=== PATIENT | male | born 1950 | race Asian ===

== ENCOUNTER 2023-05-22 10:23 | Outpatient (AMB) | payer MEDICARE, SELFPAY ==
--- NOTE | 2023-05-22 10:25 | MHC.OFFVIS ---
Intake Vital Signs 05/22/23 10:26 Height 5 ft 3 in Weight 160 lb BMI 28.3 BP 118/72 Blood Pressure Location Lt brachial Position Sitting Respiration 12 Pulse 94 Pulse Source Pulse Oximeter Pulse Oximetry (%) 99 Oxygen Delivery Method Room Air Intake Visit Reasons: back pain/ CONFIRM Allergies No Known Allergies Allergy (Verified 05/22/23 10:29) Medication List - Last Reconciled 05/22/23 by Mary Munguia LPN doxazosin 2 mg PO DAILY finasteride 5 mg PO DAILY metoprolol succinate ER 25 mg PO DAILY naproxen 500 mg PO BID pregabalin 75 mg PO BID rosuvastatin 10 mg PO BEDTIME HPI back pain/ CONFIRM HPI Details 72-year-old male who presents today to the office for an evaluation of back pain. The patient reports low back pain that has been going on for several years. It is rated as 7/10 in intensity. It is mostly in the right low back area. He has moderate thoracic and lumbar scoliosis. He underwent cortisone injections in the past that only provided short term relief. He is looking for some longer-term treatment options. The patient had received fluoroscopic facet injections by pain management at [facility] every three months, and his last injection was on 03/15/2023. He is able to stand, sit, and walk. He is unable to lay down. He reports taking naproxen and methocarbamol with minimal pain relief. [facility] Medical History (Updated 05/28/23 @ 11:38 by El Richmond MD) Paroxysmal supraventricular tachycardia Mitral valve problem Hypertriglyceridemia Elevated prostate specific antigen (PSA) Benign prostatic hyperplasia Briones's cyst Review of Systems Const All systems reviewed & are unremarkable except as noted in HPI and below Physical Exam Vital Signs: Last Vital Signs Pulse 94 05/22/23 10:26 Resp 12 05/22/23 10:26 BP 118/72 05/22/23 10:26 Pulse Ox 99 05/22/23 10:26 Oxygen Delivery Method Room Air 05/22/23 10:26 BMI result Body Mass Index 28.3 General: Appears afebrile. Alert and oriented. Mood and affect appropriate. Follows and participates in conversation appropriately. Respiratory effort is unlabored. Able to transition from sit to stand unassisted. Ambulates with bilaterally normal heel strike and toe off. Pain is localized to the right flank/subcostal area. No significant pain in the lower back area. It is tender to palpation. Results Reviewed Results Reviewed: No imaging is available for review. Assessment & Plan Assessment & Plan (1) Chest wall pain, chronic: Code(s): R07.89 - Other chest pain; G89.29 - Other chronic pain Plan We will schedule him an ultrasound examination of the subcostal region of tenderness with possible right T9 intercostal nerve blocks. All questions were answered. The patient is on board with the plan. Scribed for Dr. Richmond by Tommy Steele, curator medical museum, on 05/22/2023. I, Dr. Richmond, have personally reviewed and agree with the information entered by the scribe. Coding Level of Care Code New Pt Level 4 (70241) Diagnoses Chest wall pain, chronic R07.89; G89.29
[2023-05-22 10:26] VITALS: BP 118/72; PULSE 94; RESP 12; O2SAT 99; BMI 28.3
== END 2023-05-22 11:10 | disposition home or self-care (01) ==
LOC: HO.PMC 10:24
PROVIDERS: PCP Internal Medicine; Visit Provider Internal Medicine
DX: R07.89 Other chest pain (principal); G89.29 Other chronic pain
CPT/HCPCS: 99204

== ENCOUNTER → 2023-05-22 10:23 | Outpatient (BNVA) | payer MEDICARE, SELFPAY | PROVIDERS: PCP Internal Medicine; Visit Provider Internal Medicine | DX: R07.89 Other chest pain (principal); G89.29 Other chronic pain | CPT/HCPCS: 99202 ==

== ENCOUNTER 2023-06-03 08:08 | Outpatient (AMB) | payer MEDICARE, SELFPAY ==
--- NOTE | 2023-06-03 08:11 | MHC.OFFVIS ---
Intake Vital Signs 06/03/23 08:12 Height 5 ft 3 in Weight 158 lb BMI 28.0 BP 123/84 Blood Pressure Location Lt brachial Position Sitting Respiration 12 Pulse 96 Pulse Source Pulse Oximeter Pulse Oximetry (%) 96 Oxygen Delivery Method Room Air Intake Visit Reasons: US guided inj Allergies No Known Allergies Allergy (Verified 06/03/23 08:14) Medication List - Last Reconciled 06/03/23 by Mary Munguia LPN doxazosin 2 mg PO DAILY finasteride 5 mg PO DAILY metoprolol succinate ER 25 mg PO DAILY naproxen 500 mg PO BID pregabalin 75 mg PO BID rosuvastatin 10 mg PO BEDTIME HPI US guided inj HPI Details 72-year-old male who presents today to the office for an US guided injection. He reports severe pain and is unable to lay down. Denies any recent cough, cold, infection, fever or other significant changes in medical history since last office visit. He has no history of DM. [facility] Medical History (Updated 06/03/23 @ 09:08 by El Richmond MD) Chest wall pain, chronic Paroxysmal supraventricular tachycardia Mitral valve problem Hypertriglyceridemia Elevated prostate specific antigen (PSA) Benign prostatic hyperplasia Briones's cyst Review of Systems Const All systems reviewed & are unremarkable except as noted in HPI and below Physical Exam Vital Signs: Last Vital Signs Pulse 96 06/03/23 08:12 Resp 12 06/03/23 08:12 BP 123/84 06/03/23 08:12 Pulse Ox 96 06/03/23 08:12 Oxygen Delivery Method Room Air 06/03/23 08:12 BMI result Body Mass Index 28.0 General: Appears afebrile. Alert and oriented. Mood and affect appropriate. Follows and participates in conversation appropriately. Respiratory effort is unlabored. Able to transition from sit to stand unassisted. Ambulates with bilaterally normal heel strike and toe off. Office Procedures Joint Injection/Drain Joint Injection/Drain Details: Right gluteus medius tendon injection at the posterior superior iliac spine insertion The patient was placed in the lateral position. Ultrasound was used to visualize the structures underneath the point of maximal tenderness that showed the gluteus medius muscle as well as the PSIS. The needle was advanced under ultrasound guidance. 30 ml of Kenalog with 5cc of ropivacaine and 8 cc of normal saline was injected around the tendon insertion site with fascial hydrodissection. The needle was removed, skin cleansed and a sterile bandage was applied. The patient tolerated the procedure well and no complications were encountered. Following the procedure, the patient's vital signs and respiration were stable. The patient was discharged home in good condition with post-procedural instructions. Time Out: Immediately prior to the procedure, the following was verbally confirmed that there is a signed consent form and that the correct patient, planned procedure, site and side are consistent with documentation and that necessary equipment and/or blood products are available prior to the start of the case. Complications: none EBL: <1 cc Coding Procedure code (CPT) selection complete Results Reviewed Results Reviewed: No imaging is available for review. Assessment & Plan Assessment & Plan (1) Right buttock pain: Code(s): M79.18 - Myalgia, other site Plan Patient is status post right gluteus medius tendon injection at the posterior superior iliac spine. Patient tolerated procedure well and was discharged home in stable condition with discharge instructions. All questions were answered. Follow-up as needed depending on response to therapy. Scribed for Dr. Richmond by Tommy Steele, medical technical writer, on 06/03/2023. I, Dr. Richmond, have personally reviewed and agree with the information entered by the scribe. Coding Level of Care Code Procedure Only Diagnoses Right buttock pain M79.18
[2023-06-03 08:12] VITALS: BP 123/84; PULSE 96; RESP 12; O2SAT 96; BMI 28.0
== END 2023-06-03 08:40 | disposition home or self-care (01) ==
PROVIDERS: PCP Internal Medicine; Visit Provider Internal Medicine
DX: M79.18 Myalgia, other site (principal)
CPT/HCPCS: 20550

== ENCOUNTER → 2023-06-03 08:08 | Outpatient (BNVA) | payer MEDICARE, SELFPAY | PROVIDERS: PCP Internal Medicine; Visit Provider Internal Medicine | DX: M79.18 Myalgia, other site (principal) | CPT/HCPCS: 20550; J2795; J3301 ==

== ENCOUNTER 2023-06-14 11:23 | Outpatient (AMB) | payer MEDICARE, SELFPAY ==
--- NOTE | 2023-06-14 11:30 | A.OFFVIS_ITS ---
Vital Signs 06/14/23 11:33 Height 5 ft 3 in Weight 158 lb BMI 28.0 BP 102/58 L Blood Pressure Location Lt brachial Position Sitting Respiration 12 Pulse 107 H Pulse Source Pulse Oximeter Pulse Oximetry (%) 96 Oxygen Delivery Method Room Air Intake Visit Reasons: NO RELIEF AFTER INJECTION Allergies No Known Allergies Allergy (Verified 06/14/23 11:34) Medication List - Last Reconciled 06/14/23 by Mary Munguia LPN doxazosin 2 mg PO DAILY finasteride 5 mg PO DAILY metoprolol succinate ER 25 mg PO DAILY naproxen 500 mg PO BID pregabalin 75 mg PO BID rosuvastatin 10 mg PO BEDTIME HPI HPI NO RELIEF AFTER INJECTION: Details: 72-year-old male who presents today to the office for a no relief after injection. The patient reports 60% relief following the procedure for first two days. His pain then started to return to baseline. He is interested in repeating injection. Past procedure: 06/03/23: Right gluteus medius tendon injection at the posterior superior iliac spine insertion: 60% short term relief relief. [facility] Medical History (Updated 06/03/23 @ 09:08 by El Richmond MD) Chest wall pain, chronic Paroxysmal supraventricular tachycardia Mitral valve problem Hypertriglyceridemia Elevated prostate specific antigen (PSA) Benign prostatic hyperplasia Briones's cyst Review of Systems Const All systems reviewed & are unremarkable except as noted in HPI and below Physical Exam Vital Signs: Last Vital Signs Pulse 107 H 06/14/23 11:33 Resp 12 06/14/23 11:33 BP 102/58 L 06/14/23 11:33 Pulse Ox 96 06/14/23 11:33 Oxygen Delivery Method Room Air 06/14/23 11:33 BMI result Body Mass Index 28.0 General: Appears afebrile. Alert and oriented. Mood and affect appropriate. Follows and participates in conversation appropriately. Respiratory effort is unlabored. Able to transition from sit to stand unassisted. Ambulates with bilaterally normal heel strike and toe off. Office Procedures Injection Trigger Point Multi Right lumbar trigger point injection, ultrasound guided Pre-procedure diagnosis: Myofascial pain Post-procedure diagnosis: Myofascial pain Site and number of trigger points: Right gluteus medius, minimus, tensor fascia julia Solution: Total volume administered 5 ml ropivacaine 0.25%). The procedure, its benefits, and its risks were explained to the patient and all questions were answered. The painful triggering area was identified and really ultrasound of the needle was advanced under ultrasound guidance to the muscle and in between the fascial layers in between the muscles. The injectate was administered in small increments. The needle was then removed. The patient tolerated the procedure well. Post-procedure, breath sounds were equal at both sides of the chest. The patient tolerated the procedure well, without complication. The patient denied any numbness, paresthesias, or weakness. Post-procedure vitals were recorded as part of the nursing discharge note in electronic medical record. Following a period of observation, the patient was discharged in stable condition with written discharge instructions. An ultrasound image of the injection was taken and stored in the permanent record. Trigger Point Multiple: 69208- Trigger point injection =/>3 Joint Injection/Drain Joint Injection/Drain Details: Bilateral greater trochanteric bursa injection, ultrasound guided. After informed written consent was obtained, the patient was placed in the lateral position. Pre-procedure oxygen saturation, heart rate, and blood pressure were recorded. The skin was prepped with Chloroprep, and draped in a sterile fashion. With the use of ultrasound, the greater trochanter was identified. A 21-gauge 80 mm needle was then advanced toward the trochanteric bursa under ultrasound visualization. Once in position, and after negative aspiration, 40 mg of Kenalog mixed with 0.5% ropivacaine (3mL total). There was no evidence of paresthesia throughout needle placement. The needle was withdrawn. The patient tolerated the procedure well and there was no evidence of procedural complications. The patient was observed in the procedure room for 20 minutes, vitals were stable, and discharged in stable condition. An ultrasound image of the injection was taken and stored in the permanent record. Coding 97682 - Glenohumeral/Tronchanteric Bursa/Intraarticular (Bilateral, Ultrasound guided) Procedure code (CPT) selection complete Results Reviewed Results Reviewed: No imaging is available for review. Assessment & Plan Assessment & Plan (1) Right buttock pain: Code(s): M79.18 - Myalgia, other site Category: Medical Plan Patient is status post right gluteus medius trigger point injection and bilateral GTB injections, ultrasound guided. Patient tolerated procedure well and was discharged home in stable condition with discharge instructions. All questions were answered. We will follow-up in two weeks via telephone or in clinic to assess response to therapy. A follow-up appointment was made during today's visit. Scribed for Dr. Richmond by Tommy Steele, emergency medicine medical director, on 06/14/2023. I, Dr. Richmond, have personally reviewed and agree with the information entered by the scribe.
[2023-06-14 11:33] VITALS: BP 102/58; PULSE 107; RESP 12; O2SAT 96; BMI 28.0
== END 2023-06-14 12:07 | disposition home or self-care (01) ==
PROVIDERS: PCP Internal Medicine; Visit Provider Internal Medicine
DX: M79.18 Myalgia, other site (principal)
CPT/HCPCS: 20553; 20611

== ENCOUNTER → 2023-06-14 11:23 | Outpatient (BNVA) | payer MEDICARE, SELFPAY | PROVIDERS: PCP Internal Medicine; Visit Provider Internal Medicine | DX: M79.18 Myalgia, other site (principal) | CPT/HCPCS: 20553; 20611 ==

== ENCOUNTER 2023-07-26 08:10 | Outpatient (REF) | payer MEDICARE, SELFPAY ==
--- NOTE | ~2023-07-26 | XR_ITS ---
EXAMINATION: XR KNEE AP STANDING CLINICAL INFORMATION: Primary bilateral osteoarthritis of knee. COMPARISON: None available. TECHNIQUE: AP bilateral standing view of the knees was obtained. FINDINGS: The bones are diffusely demineralized. Mild narrowing of the bilateral medial compartments. Tiny rounded density overlying the lateral aspect of the right medial compartment, possibly representing a loose body versus extraosseous focus. Sclerotic focus overlying the proximal lateral aspect of the right tibia may represent an osseous lesion such as a bone island versus an extra osseous focus. XR/XR knee standing BI IMPRESSION: 1. Mild narrowing of the bilateral medial compartments. 2. Tiny rounded density overlying the lateral aspect of the right medial compartment, possibly representing a loose body versus extraosseous focus. 3. Sclerotic focus overlying the proximal lateral aspect of the right tibia may represent an osseous lesion such as a bone island versus an extra osseous focus. 4. Dedicated complete series of images of the bilateral knees recommended for further evaluation.
== END 2023-07-26 08:11 | disposition home or self-care (01) ==
LOC: HO.XRAY 08:10
PROVIDERS: PCP Internal Medicine; Visit Provider Internal Medicine
DX: M17.0 Bilateral primary osteoarthritis of knee (principal); M79.18 Myalgia, other site
CPT/HCPCS: 20553; 73565; 99212; J2795; J3301

== ENCOUNTER 2023-07-26 08:10 | Outpatient (AMB) | payer MEDICARE, SELFPAY ==
--- NOTE | 2023-07-26 08:12 | MHC.OFFVIS ---
Vital Signs 07/26/23 08:16 Height 5 ft 3 in Weight 157 lb BMI 27.8 BP 131/80 Blood Pressure Location Lt brachial Position Sitting Respiration 14 Pulse 104 H Pulse Source Pulse Oximeter Pulse Oximetry (%) 96 Oxygen Delivery Method Room Air Intake Visit Reasons: INJECTION DISCUSSION Allergies No Known Allergies Allergy (Verified 07/26/23 08:19) Medication List - Last Reconciled 07/26/23 by Mary Munguia LPN doxazosin 2 mg PO DAILY finasteride 5 mg PO DAILY metoprolol succinate ER 25 mg PO DAILY naproxen 500 mg PO BID pregabalin 75 mg PO BID rosuvastatin 10 mg PO BEDTIME HPI HPI INJECTION DISCUSSION: Details: 73-year-old male who presents today to the office for a follow up discussion. He reports 6 weeks of relief following the last round of TPIs. He started to experience his torso pain during the last week and is interested in repeating TPIs. He also complains of significant medial left knee pain. He has not received knee injections in the past. He has not had an x-ray for his knee. He has a history of osteoarthritis. He is interested in injections for arthritis. Past procedure: 06/14/23: Right lumbar trigger point injection, ultrasound guided: >80% relief for 6 weeks. 06/14/23: Bilateral greater trochanteric bursa injection, ultrasound guided: >60% relief. 06/03/23: Right gluteus medius tendon injection at the posterior superior iliac spine insertion: 60% short term relief relief. [facility] Medical History (Updated 07/26/23 @ 09:04 by El Richmond MD) Chest wall pain, chronic Paroxysmal supraventricular tachycardia Mitral valve problem Hypertriglyceridemia Elevated prostate specific antigen (PSA) Benign prostatic hyperplasia Briones's cyst Review of Systems Const All systems reviewed & are unremarkable except as noted in HPI and below Physical Exam Vital Signs: Last Vital Signs Pulse 104 H 07/26/23 08:16 Resp 14 07/26/23 08:16 BP 131/80 07/26/23 08:16 Pulse Ox 96 07/26/23 08:16 Oxygen Delivery Method Room Air 07/26/23 08:16 BMI result Body Mass Index 27.8 General: Appears afebrile. Alert and oriented. Mood and affect appropriate. Follows and participates in conversation appropriately. Respiratory effort is unlabored. Able to transition from sit to stand unassisted. Ambulates with bilaterally normal heel strike and toe off. Left medial knee tenderness to palpation. Office Procedures Injection Trigger Point Multi Bilateral lumbar trigger point injection, ultrasound guided Pre-procedure diagnosis: Myofascial pain Post-procedure diagnosis: Myofascial pain Site and number of trigger points: Right gluteus medius, minimus, tensor fascia julia Solution: Total volume administered 20 ml of Kenalog with ropivacaine 0.25%. The procedure, its benefits, and its risks were explained to the patient and all questions were answered. The painful triggering area was identified and really ultrasound of the needle was advanced under ultrasound guidance to the muscle and in between the fascial layers in between the muscles. The injectate was administered in small increments. The needle was then removed. The patient tolerated the procedure well. Post-procedure, breath sounds were equal at both sides of the chest. The patient tolerated the procedure well, without complication. The patient denied any numbness, paresthesias, or weakness. Post-procedure vitals were recorded as part of the nursing discharge note in electronic medical record. Following a period of observation, the patient was discharged in stable condition with written discharge instructions. An ultrasound image of the injection was taken and stored in the permanent record. Trigger Point Multiple: 34849- Trigger point injection =/>3 Results Reviewed Results Reviewed: No imaging is available for review. Assessment & Plan Assessment & Plan (1) Right buttock pain: Code(s): M79.18 - Myalgia, other site Category: Medical (2) Left knee pain: Code(s): M25.562 - Pain in left knee Category: Medical (3) Myofascial pain: Code(s): M79.18 - Myalgia, other site Category: Medical Plan Patient is status post bilateral lumbar trigger point injection, ultrasound guided. Patient tolerated procedure well and was discharged home in stable condition with discharge instructions. All questions were answered. Ordered x-ray of bilateral knees for him to assess osteoarthritis of the knees of the possible causes of his left medial knee pain. The patient will follow up on 08/09/2023 at 10:15 AM for potential left knee intraarticular steroid injection. Scribed for Dr. Richmond by Tommy Steele medical observer, on 07/26/2023. I, Dr. Richmond, have personally reviewed and agree with the information entered by the scribe. Orders: Orders XR knee standing BI Today M17.0 - Bilateral primary osteoarthritis of knee Coding Level of Care Code Est Pt Level 3 (52605) Procedure Only Diagnoses Right buttock pain M79.18 Left knee pain M25.562 Myofascial pain M79.18 CPT Codes Details - Trigger Point Multiple: 47020- Trigger point injection =/>3 ([id number])
[2023-07-26 08:16] VITALS: BP 131/80; PULSE 104; RESP 14; O2SAT 96; BMI 27.8
== END 2023-07-26 08:58 | disposition home or self-care (01) ==
PROVIDERS: PCP Internal Medicine; Visit Provider Internal Medicine
DX: M25.562 Pain in left knee (principal); M79.18 Myalgia, other site
CPT/HCPCS: 20553; 99213

== ENCOUNTER 2023-08-09 09:57 | Outpatient (AMB) | payer MEDICARE, SELFPAY ==
--- NOTE | 2023-08-09 10:07 | MHC.OFFVIS ---
Vital Signs 08/09/23 10:10 Height 5 ft 3 in Weight 154 lb BMI 27.3 BP 130/80 Blood Pressure Location Lt brachial Position Sitting Respiration 14 Pulse 81 Pulse Source Pulse Oximeter Pulse Oximetry (%) 95 Oxygen Delivery Method Room Air Intake Visit Reasons: 2 WEEK FOLLOW UP Allergies No Known Allergies Allergy (Verified 08/09/23 10:11) Medication List - Last Reconciled 08/09/23 by Mary Munguia LPN doxazosin 2 mg PO DAILY finasteride 5 mg PO DAILY metoprolol succinate ER 25 mg PO DAILY naproxen 500 mg PO BID pregabalin 75 mg PO BID rosuvastatin 10 mg PO BEDTIME HPI HPI 2 WEEK FOLLOW UP: Details: 73-year-old male who presents today to the office for two weeks follow up. He continues to experience knee pain. He has difficulty walking. He states that his pain is secondary to muscle issues. He has not tried physical therapy in the past. He reports localized back pain. He has difficulty lying down on the bed. Past procedure: 07/26/23: Bilateral lumbar trigger point injection, ultrasound guided: 70% relief for 2 weeks. 06/14/23: Right lumbar trigger point injection, ultrasound guided: >80% relief for 6 weeks. 06/14/23: Bilateral greater trochanteric bursa injection, ultrasound guided: >60% relief. 06/03/23: Right gluteus medius tendon injection at the posterior superior iliac spine insertion: 60% short term relief relief. [facility] Medical History (Updated 07/26/23 @ 09:04 by El Richmond MD) Chest wall pain, chronic Paroxysmal supraventricular tachycardia Mitral valve problem Hypertriglyceridemia Elevated prostate specific antigen (PSA) Benign prostatic hyperplasia Briones's cyst Review of Systems Const All systems reviewed & are unremarkable except as noted in HPI and below Physical Exam Vital Signs: Last Vital Signs Pulse 81 08/09/23 10:10 Resp 14 08/09/23 10:10 BP 130/80 08/09/23 10:10 Pulse Ox 95 08/09/23 10:10 Oxygen Delivery Method Room Air 08/09/23 10:10 BMI result Body Mass Index 27.3 General: Appears afebrile. Alert and oriented. Mood and affect appropriate. Follows and participates in conversation appropriately. Respiratory effort is unlabored. Able to transition from sit to stand unassisted. Ambulates with bilaterally normal heel strike and toe off. Office Procedures Injection Trigger Point Multi Pre-procedure diagnosis: Myofascial pain Post-procedure diagnosis: Myofascial pain Site and number of trigger points: Right gluteus medius, minimus, tensor fascia julia Solution: Total volume administered 10 mL ropivacaine 0.25%. The procedure, its benefits, and its risks were explained to the patient and all questions were answered. Prior to the start of the procedure, a ?time out? was performed to confirm correct patient, procedure, and laterality. Trigger points were identified by manual palpation and marked. The skin was cleaned with Chloraprep. A 1.5 inch 25 G needle was used. Each of the trigger points were approximated and elevated in the direction away from the body. Dry needling then took place for five seconds. Approximately 0.5 ml to 1 ml of injectate was delivered to the trigger point followed by dry needling for five seconds. This process was repeated at each trigger point site. The patient tolerated the procedure well. Post-procedure, breath sounds were equal at both sides of the chest. The patient tolerated the procedure well, without complication. The patient denied any numbness, paresthesias, or weakness. Post-procedure vitals were recorded as part of the nursing discharge note in electronic medical record. Following a period of observation, the patient was discharged in stable condition with written discharge instructions. Trigger Point Multiple: [id number]- Trigger point injection =/>3 Results Reviewed Results Reviewed: 07/26/23: XR KNEE AP STANDING FINDINGS: The bones are diffusely demineralized. Mild narrowing of the bilateral medial compartments. Tiny rounded density overlying the lateral aspect of the right medial compartment, possibly representing a loose body versus extraosseous focus. Sclerotic focus overlying the proximal lateral aspect of the right tibia may represent an osseous lesion such as a bone island versus an extra osseous focus. IMPRESSION: 1. Mild narrowing of the bilateral medial compartments. 2. Tiny rounded density overlying the lateral aspect of the right medial compartment, possibly representing a loose body versus extraosseous focus. 3. Sclerotic focus overlying the proximal lateral aspect of the right tibia may represent an osseous lesion such as a bone island versus an extra osseous focus. 4. Dedicated complete series of images of the bilateral knees recommended for further evaluation. 07/26/23: XR KNEE AP STANDING FINDINGS: The bones are diffusely demineralized. Mild narrowing of the bilateral medial compartments. Tiny rounded density overlying the lateral aspect of the right medial compartment, possibly representing a loose body versus extraosseous focus. Sclerotic focus overlying the proximal lateral aspect of the right tibia may represent an osseous lesion such as a bone island versus an extra osseous focus. IMPRESSION: 1. Mild narrowing of the bilateral medial compartments. 2. Tiny rounded density overlying the lateral aspect of the right medial compartment, possibly representing a loose body versus extraosseous focus. 3. Sclerotic focus overlying the proximal lateral aspect of the right tibia may represent an osseous lesion such as a bone island versus an extra osseous focus. 4. Dedicated complete series of images of the bilateral knees recommended for further evaluation. Assessment & Plan Assessment & Plan (1) Right buttock pain: Code(s): M79.18 - Myalgia, other site Category: Medical Plan A referral was provided to physical therapy for the knee and back for three months. The patient will receive a call to schedule an appointment. A script was also provided to the patient for physical therapy. Patient is status post trigger point injections. Patient tolerated procedure well and was discharged home in stable condition with discharge instructions.? All questions were answered. We will follow-up in ten weeks. Scribed for Dr. Richmond by Tommy Steele, medical record librarians teacher, on 08/09/2023. I, Dr. Richmond, have personally reviewed and agree with the information entered by the scribe. Orders: Orders PT Evaluation and Treatment 08/09/23 M79.18 - Myalgia, other site Coding Level of Care Code Est Pt Level 3 (86260) Diagnoses Right buttock pain M79.18 CPT Codes Details - Trigger Point Multiple: 43289- Trigger point injection =/>3 ([id number])
[2023-08-09 10:10] VITALS: BP 130/80; PULSE 81; RESP 14; O2SAT 95; BMI 27.3
== END 2023-08-09 10:24 | disposition home or self-care (01) ==
PROVIDERS: PCP Internal Medicine; Visit Provider Internal Medicine
DX: M79.18 Myalgia, other site (principal)
CPT/HCPCS: 20553

== ENCOUNTER → 2023-08-09 09:57 | Outpatient (BNVA) | payer MEDICARE, SELFPAY | PROVIDERS: PCP Internal Medicine; Visit Provider Internal Medicine | DX: M79.18 Myalgia, other site (principal) | CPT/HCPCS: 20553; J2795 ==